=== PATIENT | female | born 1980 | race Caucasian/White ===

== ENCOUNTER 2016-06-10 23:06 | Emergency (ER) | payer SELFPAY ==
[~2016-06-10] VITALS: Ht 182.9 cm; Wt 100.7 kg
--- NOTE | 2016-06-11 00:48 | PHYS DOC ---
Past Medical History Past Medical History: Other Additional Past Medical Histor: post partem depression Past Surgical History: Cholecystectomy, , Tubal ligation Alcohol Use: None Drug Use: None Adult General Chief Complaint Chief Complaint: NAUSEA/VOMITING/DIARRHA HPI HPI Patient is a 35 year old female who presents with nausea vomiting and diarrhea starting this afternoon. Her male significant other is sick with similar illness. She notes multiple episodes of nonbloody nonbilious emesis and a few episodes of nonbloody diarrhea. She has crampy, diffuse, mild abdominal pain. She denies dysuria, hematuria, fever or chills. Review of Systems Review of Systems Constitutional: Denies fever or chills [] Eyes: Denies change in visual acuity, redness, or eye pain [] HENT: Denies nasal congestion or sore throat [] Respiratory: Denies cough or shortness of breath [] Cardiovascular: No additional information not addressed in HPI [] GI: Denies bloody stools or bloody emesis [] : Denies dysuria or hematuria [] Musculoskeletal: Denies back pain or joint pain [] Integument: Denies rash or skin lesions [] Neurologic: Denies headache, focal weakness or sensory changes [] Endocrine: Denies polyuria or polydipsia [] Current Medications Current Medications Current Medications Medications (Trade) Dose Ordered Sig/Mable Start Time Stop Time Status Last Admin Dose Admin Acetaminophen (Tylenol) 500 mg 1X ONCE 06/11/16 02:00 06/11/16 02:01 DC 06/11/16 01:51 500 MG Metoclopramide HCl (Reglan) 10 mg 1X ONCE 06/11/16 03:00 06/11/16 03:01 DC 06/11/16 02:41 10 MG Ondansetron HCl (Zofran) 4 mg 1X ONCE 06/11/16 02:00 06/11/16 02:13 DC 06/11/16 02:05 4 MG Sodium Chloride (Iv Sodium Chloride 0.9% 1000ml Bag) 1,000 ml @ 1,000 mls/hr Q1H 06/11/16 01:15 06/11/16 02:14 DC 06/11/16 01:16 1,000 MLS/HR Allergies Allergies Allergies Coded Allergies Type Severity Reaction Last Updated Verified tramadol Allergy Intermediate 06/11/16 Yes Physical Exam Physical Exam Constitutional: Well developed, well nourished, no acute distress, non-toxic appearance. [] HENT: Normocephalic, atraumatic, bilateral external ears normal, oropharynx moist, nose normal. [] Eyes: PERRLA, EOMI. [] Neck: Normal range of motion, supple. [] Cardiovascular:Heart rate regular rhythm [] Lungs & Thorax: Bilateral breath sounds clear to auscultation [] Abdomen: Bowel sounds normal, soft, no tenderness. [] Skin: Warm, dry, no erythema, no rash. [] Back: No tenderness, no CVA tenderness. [] Extremities: ROM intact, no edema. [] Neurologic: Alert and oriented X 3, normal motor function, normal sensory function, no focal deficits noted. [] Psychologic: Affect normal, judgement normal, mood normal. [] Current Patient Data Vital Signs Vital Signs Date Time Temp Pulse Resp B/P Pulse Ox O2 Delivery O2 Flow Rate FiO2 06/10/16 23:46 98.5 57 20 165/96 97 Room Air 98.5 Lab Values Laboratory Tests Test 06/11/16 00:44 Sodium Level 137mmol/L (136-145) Potassium Level 4.1mmol/L (3.5-5.1) Chloride Level 103mmol/L (98-107) Carbon Dioxide Level 26mmol/L (21-32) Anion Gap 8 (6-14) Blood Urea Nitrogen 17mg/dL (7-20) Creatinine 0.7mg/dL (0.6-1.0) Estimated GFR (Cockcroft-Gault) 96.4 Glucose Level 115mg/dL (70-99) H Calcium Level 8.9mg/dL (8.5-10.1) Laboratory Tests 06/11/16 00:44 Course & Med Decision Making Course & Med Decision Making Pertinent Labs and Imaging studies reviewed. (See chart for details) Workup is unremarkable. She is feeling better after multiple doses of antiemetics. She would like to go home. Return precautions given. She understands and agrees with plan. Dragon Disclaimer Dragon Disclaimer This electronic medical record was generated, in whole or in part, using a voice recognition dictation system. Departure Departure Impression: Primary Impression: Nausea vomiting and diarrhea Disposition: HOME, SELF-CARE Condition: STABLE Referrals: UNKNOWN PCP NAME (PCP) Patient Instructions: Nausea and Vomiting, [id number] Additional Instructions: Take Zofran as needed for nausea. Follow-up with your primary care doctor within one week. Return for any concerns. Scripts Ondansetron (Zofran Odt)4 Mg Tab.rapdis1 Tab SL Q8HRS #10 TAB Prov:Narinder RICHARD MD 06/11/16 Narinder RICHARD MD Jun 11, 2016 00:48
[2016-06-11 01:03] LABS: CALCIUM 8.9 mg/dL (8.5-10.1); CREATININE 0.7 mg/dL (0.6-1.0); GFR 96.4; POTASSIUM 4.1 mmol/L (3.5-5.1)
[2016-06-11] MEDS: IV NORMAL SALINE 1000ML BAG 1,000 ML IV SCH ×2 (01:14→01:16)
[2016-06-11] MEDS ORDERED: ONDANSETRON PF 4 MG/2 ML VIAL. IV ONE ×2 (01:15→02:00)
[2016-06-11] MEDS ORDERED: ONDA4TAB10 SL (01:37)
[2016-06-11] MEDS ORDERED: ACETAMINOPHEN 500 MG TABLET PO ONE (02:00)
[2016-06-11 02:40] VITALS: BP 145/96
[2016-06-11] MEDS ORDERED: METOCLOPRAMIDE HCL 10 MG/2 ML VIAL. IV ONE (03:00)
== END 2016-06-11 02:40 | disposition home or self-care (01) ==
LOC: ER 23:06
DX: R11.2 Nausea with vomiting, unspecified (principal); R19.7 Diarrhea, unspecified; R10.9 Unspecified abdominal pain; F32.9 Major depressive disorder, single episode, unspecified; Z98.51 Tubal ligation status; Z90.49 Acquired absence of other specified parts of digestive tract; Z88.5 Allergy status to narcotic agent
CPT/HCPCS: 36415; 80048; 81025; 96374; 96375; 96376; 99285; J2405; J2765; J7030

== ENCOUNTER → 2018-06-25 | Outpatient (CLI) | payer OTHER ==
[~2018-06-25] MED LIST: ONDA4TAB10 SL
--- NOTE | 2018-06-25 15:14 | RAD ---
AP standing knees, single view, 06/25/2018: HISTORY: Knee pain The knee joint spaces are well-maintained. No fracture or dislocation is identified on this limited exam. Electronically signed by: Son Oneill MD (06/25/2018 3:11 PM) [facility]
--- NOTE | 2018-06-25 16:37 | RAD ---
MRI of the cervical spine without contrast 06/25/2018 CLINICAL HISTORY: Chronic neck pain for 2 years. TECHNIQUE: Unenhanced T1-weighted, T2-weighted and inversion recovery sagittal and gradient echo and T2-weighted axial images of the cervical spine were obtained. FINDINGS: Minimal lateral curvature of the cervical spine is seen convex to the left. There is slight reversal of the normal cervical lordosis. Degenerative signal changes are seen involving the C5-6 and C6-7 discs. The marrow signal of the visualized bony structures is within normal limits. The cerebellar tonsils project 8 mm below the foramen magnum consistent with a Chiari I malformation. There is no evidence of a syrinx within the visualized portions of the spinal cord. The cervical spinal cord is normal morphology, position, and signal characteristics. A 3.7 cm cystic mass is seen within the left lobe of thyroid gland which has a nonspecific MRI appearance. On the axial images throughout the cervical spine, degenerative changes are seen consisting of minimal to mild generalized disc bulges and degenerative changes involving the uncovertebral and facet joints. These findings do not result in areas of significant central spinal canal or neural foraminal stenosis. IMPRESSION: 1. Degenerative changes are seen throughout the cervical spine. These findings do not result in significant central spinal canal or neural foraminal stenosis. 2. Chiari I malformation. No syrinx is seen within the visualized portions of the spinal cord. 3. 3.7 cm cystic mass is seen involving the left lobe of thyroid gland. This has a nonspecific MRI appearance. This could be further evaluated with thyroid ultrasound if clinically warranted. Electronically signed by: Max Reed MD (06/25/2018 4:34 PM) [id number]
== END | disposition home or self-care (01) ==
LOC: MRI 15:23
PROVIDERS: ATTEND Physical Medicine & Rehabilitation
DX: M47.892 Other spondylosis, cervical region (principal); G93.5 Compression of brain; E04.1 Nontoxic single thyroid nodule; M17.0 Bilateral primary osteoarthritis of knee
CPT/HCPCS: 72141; 73565